=== PATIENT | female | born 1975 | race Caucasian/White ===

== ENCOUNTER 2017-12-14 06:25 | Day surgery (SDC) | payer OTHER ==
[2017-12-14] MEDS ORDERED: ROCURONIUM 50 MG INJ (08:24)
[2017-12-14] MEDS ORDERED: LIDOCAINE 2% (SDV) 5 ML INJ (08:24)
[2017-12-14] MEDS ORDERED: PROPOFOL 20 ML (08:24)
[2017-12-14] MEDS ORDERED: NEOSTIGMINE 3 MG/3 ML SYRINGE (08:24)
[2017-12-14] MEDS ORDERED: GLYCOPYRROLATE 1 MG INJ (08:24)
[2017-12-14] MEDS ORDERED: MIDAZOLAM 1 MG/ML 2 ML INJ (08:25)
[2017-12-14] MEDS ORDERED: FENTAnyl 50 MCG/ML VIAL (08:25)
[2017-12-14] MEDS ORDERED: DEXAMETHASONE 4 MG/ML 1 ML INJ (08:25)
[2017-12-14] MEDS ORDERED: ONDANSETRON 4 MG INJ (08:25)
[2017-12-14] MEDS ORDERED: ACETAMINOPHEN 325 MG TAB PO (09:00)
== END 2017-12-14 10:52 | disposition home or self-care (01) ==
LOC: SDS 06:25
DX: D17.23 Benign lipomatous neoplasm of skin and subcutaneous tissue of right leg (principal); E66.9 Obesity, unspecified
CPT/HCPCS: 27327; 84702; 86850; 86900; 86901; 88304